=== PATIENT | female | born 1990 | race Two or more races ===

== ENCOUNTER 2025-07-01 10:02 | Emergency (ER) | payer MEDICAID, SELFPAY ==
[2025-07-01 11:05] VITALS: BP 121/79; PULSE 88; RESP 18; TEMP 36.8; O2SAT 97; BMI 43.8
--- NOTE | 2025-07-01 11:32 | PD.EDDENTL ---
ED Dental RME/HPI General Chief complaint: Dental/Oral/Throat Stated complaint: DENTAL PAIN Time Seen by Provider: 07/01/25 11:18 Arrival date/time: 07/01/25 10:02 Limitations: no limitations RME / HPI RME / HPI Narrative: 35 year old female with history of prior dental infections presents to the ED for evalution of left lower jaw swelling and pain today. Reportedly had consulted with her dentist and advised she would need to go to [place] to have the molar extracted. Denies fevers, chills, difficulty breathing or swallowing. Related Data Previous Rx's ?Medication ?Instructions ?Recorded penicillin V potassium 500 mg 500 mg PO QID DENTAL INFECTION 14 07/01/25 tablet days #56 tabs Allergies Allergy/AdvReac Type Severity Reaction Status Date / Time No Known Allergies Allergy Verified 01/23/23 17:24 Review of Systems Review of Systems Systems Reviewed: All systems reviewed, normal except as documented Past Medical History Social History SMOKING STATUS: Never smoker ED Exam General Limitations: Present no limitations General appearance: Present alert and in no apparent distress Head Head exam: Present atraumatic, normocephalic and normal inspection Eye Eye exam: Present normal appearance, PERRL and EOMI ENT ENT exam: Present mucous membranes moist and other (Mild left mandibular swelling, left molar is decayed and rotted in the center ) Neck Neck exam: Present full ROM, trachea midline and other (No submandibular lymph nodes ) Chest Chest inspection: Present normal inspection and symmetric chest wall rise Respiratory Respiratory exam: Present normal lung sounds bilaterally Cardiovascular Cardiovascular exam: Present regular rate, normal rhythm and normal heart sounds Abdominal Exam Abdominal exam: Present soft and normal bowel sounds Extremities Exam Extremities exam: Present normal inspection and full ROM Back Exam Back exam: Present normal inspection and full ROM Neurological Exam Neurological exam: Present alert, oriented X3 and CN II-XII intact Psychiatric Psychiatric exam: Present normal affect and normal mood Skin Skin exam: Present warm, dry, intact and normal color Course Quality Measures none Vital Signs Vital signs: Vital Signs Temperature 98.2 F 07/01/25 11:05 Pulse Rate 88 07/01/25 11:05 Respiratory Rate 18 07/01/25 11:05 Blood Pressure 121/79 07/01/25 11:05 Pulse Oximetry (%) 97 07/01/25 11:05 Oxygen Delivery Method Room Air 07/01/25 11:05 Pulse ox is 97% on room air which is adequate. Dental / Oral MDM Narrative MDM Narrative:: IAna Paula, am scribing for and in the presence of Dr. Velarde. assessment: dental decay, dental abscess Patient data External records reviewed:: [facility] previous records Clinical information provided by:: patient Social determinants that could affect healthcare access:: none Patient has the following chronic illnesses:: Prior dental infections How is presenting disease/condition affected by chronic disease/condition?: exacerbated by Evaluation data The following diagnostics were reviewed and interpreted by me:: other (specify) (No diagnostics ordered ) Lab and/or radiology exams considered but not ordered:: None Interpretation Summary: N/A Medications / Prescriptions Medications or Prescriptions considered but not ordered:: None Medication administrations:: None Consultations Consultation(s) initiated? (list below): No Diagnosis Most likely diagnosis given after review of the tests above:: Dental caries Dental abscess Admission Indicated Admission indicated?: not indicated Admission Request Was there a request for admission?: No Disposition Plan Disposition Plan: Discharge Discharge Attestation Discharge Attestation: The patient and all family members were given an opportunity to ask questions and understood the discharge instructions. Discharge instructions specifically effects, indications for sooner follow up or return to the emergency department, and the expected course of current diagnosis. Patient condition: Stable Discharge Plan Plan Patient Disposition: HOME (Self Care) Patient condition on transfer: Stable Prescriptions/Referrals Prescriptions/Med Rec: New penicillin V potassium 500 mg tablet 500 mg PO QID MDD 4 14 Days Qty: 56 0RF Referrals: María Mcarthur FNP [Primary Care Provider] - In 1 week Problem List Clinical Impression: Dental caries, Dental abscess Patient/Caregiver Discharge Instructions Discharge Activity: activity as tolerated Education Materials: ED Dental Cavity, ED Tooth Abscess Additional Instructions: Take Tylenol 500 mg 1 to 2 tablets every 6 hours along with Advil gelcaps 200 mg 2 gelcaps every 6 hours as needed for pain. Follow-up with your dentist as scheduled. Print Language: Tajik Stand Alone Forms: Olga Lidia Award Info., Patient Portal Info Letter
== END 2025-07-01 12:04 | disposition home or self-care (01) ==
PROVIDERS: Emergency Provider Family Medicine; PCP Nurse Practitioner
DX: K04.7 Periapical abscess without sinus (principal); K02.9 Dental caries, unspecified
CPT/HCPCS: 99281